=== PATIENT | female | born 1965 | race Hispanic/Latino ===

== ENCOUNTER 2022-09-05 00:08 | Emergency (ER) | payer BC ==
[~2022-09-05] VITALS: Ht 162.6 cm; Wt 122.5 kg
[2022-09-05] MEDS ORDERED: DiphenhydrAMINE HCL 50 MG/ML VIAL IV ONE (01:00)
[2022-09-05] MEDS ORDERED: SOLU-MEDROL 125MG VIAL IVP ONE (01:00)
[2022-09-05] MEDS ORDERED: FAMOTIDINE 20MG VIAL IV ONE (01:00)
[2022-09-05] MEDS ORDERED: EPINEPHRINE PF 1MG (1:1,000) 1 MG/ML AMP IM ONE (01:30)
[2022-09-05 01:58] VITALS: BP 116/62; PULSE 78; RESP 16; O2SAT 98
[2022-09-05] MEDS ORDERED: PRED20TA3 PO (02:01)
[2022-09-05] MEDS ORDERED: FAMO-136 PO (02:01)
[2022-09-05] MEDS ORDERED: DIPH50 PO (02:01)
== END 2022-09-05 02:08 | disposition home or self-care (01) ==
LOC: EDH 00:08
DX: T78.3XXA Angioneurotic edema, initial encounter (principal); I10 Essential (primary) hypertension; Z79.52 Long term (current) use of systemic steroids; Z88.5 Allergy status to narcotic agent; Z90.49 Acquired absence of other specified parts of digestive tract; X58.XXXA Exposure to other specified factors, initial encounter
CPT/HCPCS: 99284; 96374; 96375; 96372; J1200; J3490; J2930; J0171